=== PATIENT | female | born 1975 | race Caucasian/White ===

== ENCOUNTER 2019-09-21 09:43 | Emergency (ER) | payer MEDICAID, OTHER ==
[~2019-09-21] VITALS: Ht 167.6 cm; Wt 57.0 kg
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
[2019-09-21] MEDS ORDERED: FENTANYL PF 100 MCG/2ML IV ONE (10:00)
[2019-09-21] MEDS ORDERED: SODIUM CHLORIDE 0.9%, 500ML IVBOLUS ONE (10:00)
[2019-09-21] MEDS ORDERED: FENTANYL PF 100 MCG/2ML ONE (10:03)
--- NOTE | 2019-09-21 10:10 | NUR ---
PT MEDICATED PER EMAR.
--- NOTE | 2019-09-21 10:24 | NUR ---
PT TO CT.
[2019-09-21] MEDS ORDERED: PLEASE ENTER ALLERGIES MC SCH (10:30)
--- NOTE | 2019-09-21 10:43 | NUR ---
PT RESTING ON [place] W/ CALL LIGHT IN REACH. VSS, NADN. AWAITING XRAY.
--- NOTE | 2019-09-21 10:49 | NUR ---
PER DR. GLADIS KELLER TO REMOVE CCOLLAR.
--- NOTE | 2019-09-21 10:52 | NUR ---
CALL PLACED TO [facility] FOR XRAY.
[2019-09-21 11:19] VITALS: BP 99/66
--- NOTE | 2019-09-21 11:19 | NUR ---
Patient given discharge instructions and they have confirmed that they understand the instructions. Patient ambulatory with steady gait.
== END 2019-09-21 11:21 | disposition home or self-care (01) ==
LOC: ED 11:16
DX: S13.4XXA Sprain of ligaments of cervical spine, initial encounter (principal); S40.012A Contusion of left shoulder, initial encounter; G89.11 Acute pain due to trauma; R51 Headache; V43.52XA Car driver injured in collision with other type car in traffic accident, initial encounter; Y93.89 Activity, other specified; Y92.488 Other paved roadways as the place of occurrence of the external cause; Y99.8 Other external cause status
CPT/HCPCS: 70450; 72125; 73030; 96374; 99285; J3010; J7040

== ENCOUNTER → 2020-01-18 | Outpatient (CLI) | payer MEDICAID ==
[~2020-01-18] MED LIST: GADOTERATE 7.5 MMOL/15 ML SYR ONE
== END | disposition home or self-care (01) ==
LOC: RAD 14:11
DX: M50.222 Other cervical disc displacement at C5-C6 level (principal); M48.02 Spinal stenosis, cervical region
CPT/HCPCS: 72156; A9575